=== PATIENT | female | born 1975 | race Caucasian/White ===

== ENCOUNTER 2016-12-13 21:54 | Emergency (ER) | payer BC, OTHER ==
[~2016-12-13] VITALS: Ht 170.2 cm; Wt 106.6 kg
[~2016-12-13 21:54] MED LIST: ALPR1T PO; Birth Control Pill; DESV50TA PO; GBPN100C PO; LAMO100T69 PO; METF-380 PO; OMEP20CA12 PO; PHEN37.555 PO; ZPR20C PO
[2016-12-13] MEDS ORDERED: KETOROLAC 30 MG/ML VIAL ONE (22:55)
[2016-12-13] MEDS ORDERED: ASPIRIN 81 MG CHEW (CHILDREN'S ASA) ONE (22:56)
[2016-12-13] MEDS ORDERED: NS IV 1000 ML 1,000 ML ONE (22:56)
[2016-12-13] MEDS ORDERED: NS IV 1000 ML 1,000 ML IV ONE (23:23)
[2016-12-13] MEDS ORDERED: KETOROLAC 30 MG/ML VIAL IVP ONE (23:30)
[2016-12-13] MEDS ORDERED: ASPIRIN 81 MG CHEW (CHILDREN'S ASA) PO ONE (23:30)
[2016-12-13] MEDS ORDERED: NS 100 ML (IVPB) BAG IV ONE (23:45)
[2016-12-13] MEDS ORDERED: IOHEXOL 350 MG/ML 150 ML (OMNIPAQUE 350) VIAL IV ONE (23:45)
[2016-12-13] MEDS ORDERED: NORG1TAB80 PO (23:55)
[2016-12-13] MEDS ORDERED: TRAM50TA2 PO (23:55)
--- NOTE | 2016-12-13 23:55 | ED Chest Pain ---
General Chief Complaint: Chest Wall/Rib Pain Stated Complaint: CP,SOA Nursing Triage Note: Pt c/o sternal chest pain radiating to L arm when moving or taking deep breath. Pt reports pain x2 days but worse today. Nursing Sepsis Screen: No Definite Risk Source: patient Exam Limitations: no limitations History of Present Illness Time seen by provider: 22:35 Initial Comments Here with report of chest pain and shortness of air and pain with deep breathing. She reports that this started with pain near her back left side near her shoulder blade. That seems to have decreased some but now has pain radiating around to the front of the chest and down the left arm. This is all been going on over the last 2 days. She did try ibuprofen for pain with the last dose early this morning. Denies nausea, vomiting or diarrhea. Timing/Duration: 2-3 days Severity/Quality: moderate, dull Location: central, back Radiation: arms (left-sided), shoulders Prior CP/Workup: stress test ASA po HORIZONTAL DRILL OPERATOR: No NTG SL HORIZONTAL DRILL OPERATOR: No Associated Symptoms: No abdominal pain, back painNo fever/chills, No nausea/ vomiting, No shortness of breath Allergies and Home Medications Allergies Coded Allergies: No Known Drug Allergies (Unverified , 08/07/12) Home Medications Alprazolam 1 Mg Tablet 1 MG PO TID PRN PRN ANXIETY (Reported) Gabapentin 100 Mg Cap 100 MG PO BID (Reported) Metformin Hcl 1,000 Mg Tablet 1 EACH PO BID WITH MEALS (Reported) Norgestimate-Ethinyl Estradiol 1 Each Tablet 1 EACH PO DAILY (Reported) Omeprazole 20 Mg Capsule. #30 1 CAP PO DAILY (Reported) Tramadol HCl 50 Mg Tablet 50 MG PO BID (Reported) Review of Systems Constitutional: see HPINo chills, No fever EENTM: No Symptoms Reported Respiratory: See HPI SOA With Exertion Cardiovascular: See HPI Chest Pain Gastrointestinal: No Symptoms Reported Genitourinary: No Symptoms Reported Musculoskeletal: see HPI back pain muscle pain Skin: no symptoms reported Psychiatric/Neurological: No Symptoms Reported All Other Systems Reviewed Negative Unless Noted: Yes Past Sfcpirr-Hfjrit-Wwdycv Hx Patient Social History Alcohol Use: Occasionally Uses Recreational Drug Use: No Smoking Status: Never a Smoker Recent Foreign Travel: No Contact w/Someone Who Travel: No Recent Infectious Disease Expo: No Recent Hopitalizations: No Physical Abuse Screen: No Sexual Abuse: No Immunizations Up To Date Date of Influenza Vaccine: Aug 19, 2011 Seasonal Allergies Seasonal Allergies: No Surgeries HX Surgeries: Yes Surgeries: Tonsillectomy Respiratory Hx Respiratory Disorders: No Cardiovascular Hx Cardiac Disorders: No Neurological Hx 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") Reproductive System Hx Reproductive Disorders: No Genitourinary Hx Genitourinary Disorders: No Gastrointestinal Hx Gastrointestinal Disorders: No Musculoskeletal Hx Musculoskeletal Disorders: Yes (spondolithiosis) Musculoskeletal Disorders: Chronic Back Pain Endocrine Hx Endocrine Disorders: No HEENT HX ENT Disorders: No Reviewed Nursing Assessment Reviewed/Agree w Nursing PMH: Yes Family Medical History Significant Family History: Heart Disease Physical Exam Vital Signs Vital Sign - Last 12Hours 12/13/16 21:58 Temp 97.6 Pulse 92 Resp 18 B/P 145/95 Pulse Ox 99 O2 Delivery Room Air Capillary Refill : Less Than 3 Seconds General Appearance: No Apparent Distress WD/WN HEENT: PERRL/EOMI Pharynx Normal Neck: Non Tender Supple Respiratory: Lungs Clear Normal Breath Sounds Cardiovascular: Regular Rate, Rhythm No Murmur Gastrointestinal: Non Tender Soft Extremity: Normal Inspection Normal Range of Motion Non Tender No Calf Tenderness Neurologic/Psychiatric: Alert Oriented x3 No Motor/Sensory Deficits Skin: Normal Color Warm/Dry Progress/Results/Core Measures Results/Orders Lab Results Laboratory Tests Test 12/13/16 22:20 Range/Units Alanine Aminotransferase (ALT/SGPT) 11 0-55 U/L Albumin 3.8 3.2-4.5 G/DL Alkaline Phosphatase 72 40-136 U/L Anion Gap 9 5-14 MMOL/L Aspartate Amino Transf (AST/SGOT) 12 5-34 U/L BUN/Creatinine Ratio 16 Basophils # (Auto) 0.0 0.0-0.1 10^3/uL Basophils (%) (Auto) 0 0-10 % Blood Urea Nitrogen 13 7-18 MG/DL Calcium Level 8.9 8.5-10.1 MG/DL Carbon Dioxide Level 22 21-32 MMOL/L Chloride Level 108 H 98-107 MMOL/L Creatinine 0.83 0.60-1.30 MG/DL D-Dimer 0.81 H 0.00-0.49 UG/ML Eosinophils # (Auto) 0.1 0.0-0.3 10^3/uL Eosinophils (%) (Auto) 1 0-10 % Estimat Glomerular Filtration Rate > 60 Glucose Level 102 70-105 MG/DL Hematocrit 39 35-52 % Hemoglobin 12.4 11.5-16.0 G/DL Lymphocytes # (Auto) 2.9 1.0-4.0 X 10^3 Lymphocytes (%) (Auto) 32 12-44 % Mean Corpuscular Hemoglobin 28 25-34 PG Mean Corpuscular Hemoglobin Concent 32 32-36 G/DL Mean Corpuscular Volume 87 80-99 FL Mean Platelet Volume 10.8 H 7.4-10.4 FL Monocytes # (Auto) 0.6 0.0-1.0 X 10^3 Monocytes (%) (Auto) 6 0-12 % Neutrophils # (Auto) 5.3 1.8-7.8 X 10^3 Neutrophils (%) (Auto) 60 42-75 % Platelet Count 322 130-400 10^3/uL Potassium Level 4.1 3.6-5.0 MMOL/L Red Blood Count 4.49 4.35-5.85 10^6/uL Red Cell Distribution Width 14.5 10.0-14.5 % Serum Test, Qualitative NEGATIVE NEGATIVE Sodium Level 139 135-145 MMOL/L Total Bilirubin 0.2 0.1-1.0 MG/DL Total Protein 6.8 6.4-8.2 G/DL Troponin I < 0.30 <0.30 NG/ML White Blood Count 8.8 4.3-11.0 10^3/uL My Orders Orders-JAI MAHONEY MD Ketorolac Injection (Toradol Injection) (12/13/16 23:30) Aspirin Chewable Tablet (Baby Aspirin Ch (12/13/16 23:30) Saline Lock/Iv-Start (12/13/16 23:23) Ns Iv 1000 Ml (Sodium Chloride 0.9%) (12/13/16 23:23) Monitor-Rhythm Ecg Trace Only (12/13/16 23:24) Ekg Tracing (12/13/16 23:24) Iohexol Injection (Omnipaque 350 Mg/Ml 1 (12/13/16 23:45) Ns (Ivpb) (Sodium Chloride 0.9% Ivpb Bag (12/13/16 23:45) Chest Pa/Lat (2 View) (12/13/16 ) Ct Angio Chest W (12/13/16 ) Cbc With Automated Diff (12/13/16 22:20) Comprehensive Metabolic Panel (12/13/16 22:20) Troponin I (12/13/16 22:20) Fibrin Degradation Products (12/13/16 22:20) Hcg,Qualitative Serum (12/13/16 22:20) Medications Given in ED Current Medications Medications Dose Ordered Sig/Belen Route Start Time Stop Time Status Last Admin Dose Admin Aspirin 324 mg 324 mg ONCE ONCE PO 12/13/16 23:30 12/13/16 23:31 DC 12/13/16 23:05 324 MG Iohexol 150 ml ONCE ONCE IV 12/13/16 23:45 12/13/16 23:46 DC 12/13/16 23:44 125 ML Ketorolac Tromethamine 30 mg ONCE ONCE IVP 12/13/16 23:30 12/13/16 23:31 DC 12/13/16 23:05 30 MG Sodium Chloride 100 ml ONCE ONCE IV 12/13/16 23:45 12/13/16 23:46 DC 12/13/16 23:44 80 ML Sodium Chloride 1,000 ml @ 0 mls/hr Q0M ONCE IV 12/13/16 23:23 12/13/16 23:25 DC 12/13/16 23:05 999 MLS/HR Vital Signs/I&O Vital Sign - Last 12Hours 12/13/16 21:58 Temp 97.6 Pulse 92 Resp 18 B/P 145/95 Pulse Ox 99 O2 Delivery Room Air Blood Pressure Mean: 112 Progress Note : Progress Note Seen and evaluated. IV, labs, chest x-ray and EKG ordered. D-dimer mildly positive. CT angiogram chest ordered. Toradol 30 mg IV, ASA 324 mg by mouth and normal saline 1 L bolus ordered. Monitor patient. 0019: CT angios negative for pulmonary embolism although limited study. She does have a question of small tissue densities in the bases bilateral with right greater than left. Follow-up for final report. Discharged home with return precautions. Patient verbalize understanding instructions and agreement with plan. I did discuss with the patient about the CT findings of questionable densities in the bases of the lungs with final report pending. She will follow- up with the clinic about this who can follow the recommendations of radiologist. She states she will call the clinic in the morning. ECG Initial ECG Impression Date: Dec 13, 2016 Initial ECG Impression Time: 22:06 Initial ECG Rate: 96 Initial ECG Rhythm: Normal Sinus Comment Sinus rhythm with normal axis. No evidence of ST elevation TN. Similar to previous of 08/23/11. Interpreted by me. Diagnostic Imaging Diagonstic Imaging: Xray Plain Films/CT/US/NM/MRI: chest Comments No acute findings Reviewed: Reviewed by Me Diagonstic Imaging: CT Plain Films/CT/US/NM/MRI: chest Comments Evaluation of the upper lobe pulmonary artery branches limited secondary to suboptimal contrast opacification. No evidence for pulmonary embolism. Incidental findings: The aorta past has normally. Mild atelectasis in the dependent aspect of the lungs. Small nonspecific soft tissue density nodules at the lung apices. The largest is on the right and measures 4 mm. Follow-up final report. Degenerative changes of the thoracic spine. Per statrad report Reviewed: Reviewed Night [facility] Study Departure Impression Impression: Primary Impression: Chest wall pain Disposition: 01 HOME, SELF-CARE Condition: Improved Departure-Patient Inst. Decision time for Depature: 00:35 Referrals: [facility] (PCP/Family) Primary Care Physician Patient Instructions: Chest Pain (DC) Add. Discharge Instructions: All discharge instructions reviewed with patient and/or family. Voiced understanding. You may take ibuprofen 800 mg every 8 hours as needed for pain. Continue other home medications as directed. Follow-up with your doctor for recheck and further evaluation including possible cardiac stress test as needed. Discussed with them about the CT scan results showing the densities in the lower lungs that will need follow-up per radiologist's recommendations. Return for worse pain, fever, vomiting, weakness, breathing problems or other concerns as needed. Work/School Note: Work Release Form Date Seen in the Emergency Department: Dec 13, 2016 Return to Work: Dec 14, 2016 Restrictions: No Restrictions JAI MAHONEY MD Dec 13, 2016 23:55
[2016-12-14 00:19] LABS: LYMPHOCYTES % (AUTO) 32 % (12-44); MEAN CORPUSCULAR HEMOGLOBIN 28 PG (25-34); MEAN CORPUSCULAR HGB CONC 32 G/DL (32-36); MEAN CORPUSCULAR VOLUME 87 FL (80-99); MEAN PLATELET VOLUME 10.8 FL (7.4-10.4); NEUTROPHILS % (AUTO) 60 % (42-75); PLATELET COUNT 322 10^3/uL (130-400); RED BLOOD COUNT 4.49 10^6/uL (4.35-5.85); RED CELL DISTRIBUTION WIDTH 14.5 % (10.0-14.5)
[2016-12-14 00:20] LABS: BASOPHILS % (AUTO) 0 % (0-10); EOSINOPHILS # (AUTO) 0.1 10^3/uL (0.0-0.3); EOSINOPHILS % (AUTO) 1 % (0-10); LYMPHOCYTES # (AUTO) 2.9 X 10^3 (1.0-4.0); MONOCYTES # (AUTO) 0.6 X 10^3 (0.0-1.0); MONOCYTES % (AUTO) 6 % (0-12); NEUTROPHILS # (AUTO) 5.3 X 10^3 (1.8-7.8); WHITE BLOOD COUNT 8.8 10^3/uL (4.3-11.0)
[2016-12-14 00:21] LABS: ALANINE AMINOTRANSFERASE 11 U/L (0-55); ANION GAP 9 MMOL/L (5-14); ASPARTATE AMINO TRANSFERASE 12 U/L (5-34); BILIRUBIN,TOTAL 0.2 MG/DL (0.1-1.0); BLOOD UREA NITROGEN 13 MG/DL (7-18); BUN/CREATININE RATIO 16; CALCIUM 8.9 MG/DL (8.5-10.1); CARBON DIOXIDE 22 MMOL/L (21-32); CHLORIDE 108 MMOL/L (98-107); CREATININE SERUM 0.83 MG/DL (0.60-1.30); GFR ESTIMATED > 60; GLUCOSE 102 MG/DL (70-105); POTASSIUM 4.1 MMOL/L (3.6-5.0); SODIUM 139 MMOL/L (135-145); TOTAL PROTEIN 6.8 G/DL (6.4-8.2); TROPONIN I < 0.30 NG/ML (<0.30)
[2016-12-14 00:22] LABS: ALBUMIN 3.8 G/DL (3.2-4.5)
[2016-12-14 00:41] VITALS: BP 134/81
--- NOTE | 2016-12-14 06:26 | Diagnostic Imaging Report ---
INDICATION: Chest pain and dyspnea PA and lateral views of the chest are obtained. COMPARISON: No previous study is available for comparison at this time. FINDINGS: Heart size and pulmonary vasculature are within normal limits, and the lungs are clear, bilaterally. IMPRESSION: Unremarkable chest. Dictated by: Dictated on workstation # [id number]
--- NOTE | 2016-12-14 07:23 | Diagnostic Imaging Report ---
PROCEDURE: CT angiography of the chest with contrast. TECHNIQUE: Multiple contiguous axial images were obtained through the chest after uneventful bolus administration of intravenous contrast. Reconstructed CTA MIP acquisitions were also performed. INDICATION: Chest pain and dyspnea There is no evidence of pulmonary arterial filling defect. Thoracic aorta is also unremarkable in appearance. There is slight dependent atelectasis in the lung bases. There is minimal subpleural nodularity noted in the apical aspect of the upper lobes. This is nonspecific and could be related to granulomatous exposure or fibrosis. There is mild endplate spurring throughout the thoracic spine. IMPRESSION: No CTA evidence of pulmonary embolism. Minimal nodularity in the upper lobe regions with no lesion measuring greater than 0.4 cm in size. Clinical correlation may be of use. Followup study could be performed in 6 months to document stability. Dictated by: Dictated on workstation # [id number]
== END 2016-12-14 00:41 | disposition home or self-care (01) ==
LOC: EDUNIT# 21:54 → ER 21:57
DX: R07.89 Other chest pain (principal); R06.02 Shortness of breath; E11.9 Type 2 diabetes mellitus without complications; Z79.84 Long term (current) use of oral hypoglycemic drugs; Z79.899 Other long term (current) drug therapy
CPT/HCPCS: 36415; 71020; 71275; 80053; 84484; 84703; 85025; 85379; 93005; 93041; 96361; 96374

== ENCOUNTER → 2019-07-03 | Outpatient (CLI) | payer SELFPAY ==
[~2019-07-03] MED LIST changes: +NORG1TAB3 PO; +TRAM50TA2 PO
--- NOTE | 2019-07-03 13:46 | Diagnostic Imaging Report ---
MRI RT LOWER EXT JOINT W/O TECHNIQUE: Multiplanar, multisequence MR imaging of the right knee was performed without contrast. COMPARISON: None available. INDICATION: Knee pain after injury. FINDINGS: MENISCI Medial meniscus: There is a small amount of free edge truncation of the posterior horn of the medial meniscus likely due to tearing. Lateral meniscus: Complex tear of the lateral meniscus includes a potential bucket-handle tear with the free edge flipped into the intercondylar notch. LIGAMENTS ACL: Intact. PCL: Intact. MCL: Intact. LCL: The lateral collateral ligamentous complex is intact. EXTENSOR MECHANISM The extensor mechanism is intact. CARTILAGE Medial compartment: Medial compartment articular cartilage is well preserved without focal high-grade chondromalacia. Lateral compartment: The lateral compartment articular cartilage is preserved without high-grade chondromalacia. Patellofemoral compartment: Low-grade partial-thickness chondromalacia in the medial and lateral patellar facets. Trochlear cartilage is preserved. BONE A small amount of bone marrow edema is present in the lateral femoral condyle and lateral tibial plateau which may represent bone contusion. No macroscopic fracture line. SOFT TISSUE Moderate-sized knee joint effusion. There is also a moderate-sized Porter's cyst which measures approximately 4 cm in craniocaudal dimension. IMPRESSION: 1. Complex tear of the lateral meniscus likely has a flipped bucket-handle fragment of the free edge. 2. Small regions of bone contusion in the lateral femoral condyle and opposing lateral tibial plateau. No macroscopic fracture line. 3. 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 Remainder of the articular cartilage is well preserved. 4. Moderate-sized knee joint effusion and moderate-sized Porter's cyst. Dictated by: Dictated on workstation # [id number]
== END ==
LOC: RAD 12:19
PROVIDERS: ATTEND Nurse Practitioner Community Health
DX: S83.281A Other tear of lateral meniscus, current injury, right knee, initial encounter (principal); S70.11XA Contusion of right thigh, initial encounter; S80.11XA Contusion of right lower leg, initial encounter; M22.41 Chondromalacia patellae, right knee; M25.461 Effusion, right knee; M71.21 Synovial cyst of popliteal space [Baker], right knee; X58.XXXA Exposure to other specified factors, initial encounter
CPT/HCPCS: 73721

== ENCOUNTER 2022-04-10 20:39 | Emergency (ER) | payer OTHER ==
[~2022-04-10] VITALS: Ht 170.1 cm; Wt 92.0 kg
[~2022-04-10 20:39] MED LIST changes: -TRAM50TA2 PO; +TRM50T PO
--- NOTE | 2022-04-10 20:52 | ED Neurological Problem ---
General Stated Complaint: NAUSEA/VOMITING/NUMBNESS ON ROGHT SIDE Source: patient Exam Limitations: no limitations History of Present Illness Date Seen by Provider: April 10, 2022 Time Seen by Provider: 20:43 Initial Comments 46-year-old female with no significant past medical history coming in with police as she is incarcerated due to an episode of nausea and nonbloody nonbilious vomiting. Afterward she felt some tingling on the left side of her face. This happened around 6 PM while she was showering. She said this was all started when she felt like something bit her behind her left ear. No numbness down her extremities or weakness. No vision changes or voice changes. Denies any headache at this time although she said she had some head fullness and felt slightly lightheaded when this was first occurring. Allergies and Home Medications Allergies Coded Allergies: No Known Drug Allergies (Unverified , 08/07/12) Patient Home Medication List Home Medication List Reviewed: Yes Alprazolam (Xanax) 1 Mg Tablet, 1 MG PO TID PRN for ANXIETY, (Reported) Entered as Reported by: HILDA TAVARES on 08/07/121499 Gabapentin (Neurontin) 100 Mg Cap, 100 MG PO BID, (Reported) Entered as Reported by: HILDA TAVARES on 08/07/121499 Metformin Hcl (Metformin 1000 Mg) 1,000 Mg Tablet, 1 EACH PO BID WITH MEALS, (Reported) Entered as Reported by: HILDA TAVARES on 08/07/12 1500 Norgestimate-Ethinyl Estradiol (Ortho Tri-Cyclen Lo Tablet) 1 Each Tablet, 1 EACH PO DAILY, (Reported) Entered as Reported by: KAREN PATEL on 12/13/162 Omeprazole (Omeprazole) 20 Mg Capsule.dr, 1 CAP PO DAILY, (Reported) Entered as Reported by: HILDA TAVARES on 08/07/12 1500 Tramadol HCl (Tramadol HCl) 50 Mg Tablet, 50 MG PO BID, (Reported) Entered as Reported by: KAREN PATEL on 12/13/16 0030 Review of Systems Review of Systems Constitutional: No chills, No fever Eyes: Denies Blurred Vision Ears, Nose, Mouth, Throat: no symptoms reported Respiratory: no symptoms reported Cardiovascular: no symptoms reported Gastrointestinal: no symptoms reported Genitourinary: no symptoms reported Musculoskeletal: no symptoms reported Skin: no symptoms reported Psychiatric/Neurological: Tingling, Other (Tingling) Endocrine: No Symptoms Reported Hematologic/Lymphatic: No Symptoms Reported All Other Systems Reviewed Negative Unless Noted: Yes Past Upeglak-Azuqzs-Khqtck Hx Patient Social History Tobacco Use?: No Substance use?: No Alcohol Use?: No Seasonal Allergies Seasonal Allergies: No Past Medical History Surgeries: No Tonsillectomy Reproductive Disorders: No Chronic Back Pain Family Medical History Heart Disease Physical Exam Vital Signs Vital Signs - First Documented 04/10/22 20:43 Temp 37.0 Pulse 114 Resp 16 Pulse Ox 99 O2 Delivery Room Air Capillary Refill : Height, Weight, BMI Height: 5'7.00" Weight: 235lbs. 0.0oz. 106.600474bf; 36.8 BMI Method:Stated General Appearance: WD/WN, no apparent distress HEENT: PERRL/EOMI, normal ENT inspection, TMs normal, pharynx normal Neck: non-tender, full range of motion, supple, normal inspection Respiratory: chest non-tender, lungs clear, normal breath sounds, no respiratory distress, no accessory muscle use Cardiovascular: regular rate, rhythm, no edema, no murmur Gastrointestinal: normal bowel sounds, non tender, soft; No distended, No guarding, No rebound Back: normal inspection, no CVA tenderness, no vertebral tenderness Extremities: normal range of motion, non-tender, normal inspection, no pedal edema, no calf tenderness, normal capillary refill Neurologic/Psychiatric: 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 as tested, no motor/sensory deficits, alert, normal mood/affect, oriented x 3, other (Normal gait, normal [id number]-eq-nvuh, normal fwvq-rh-zadi, normal visual burns, 20/20 vision in both eyes) Motor/Sensory: no motor deficit, no sensory deficit Skin: normal color, warm/dry Lymphatic: no adenopathy Stroke Onset of Symptoms Date of Onset of Symptoms: April 10, 2022 Time of Symptom Onset: 18:00 Onset of Symptoms: Yes NIH Stroke Scale Assessment Select: Initial Level of Consciousness: 0=Alert (0), Level of Consciousness- Questions: 0=Answers both month/age (0), LOC Commands: 0=Performs both tasks (0), Gaze: Normal (0), Visual Burns: 0=No visual loss (0), Facial Movement (Facial Paresis): 0=Normal symmetrical mnt (0), Motor Function-Arms Right: 0=No drift (0), Motor Function-Arms Left: 0=No drift (0), Motor Function-Legs Right: 0=No drift (0), Motor Function-Legs Left: 0=No drift (0), Limb Ataxia: 0=Absent (0), Sensory: 0=Normal:no loss (0), Best Language: 0=No aphasia (0), Dysarthria: 0=Normal (0), Extinction & Inattention: 0=No abnormality (0), Total: 0 Stroke Thrombolytic Exclusion Age 18 or Over: Yes Acute intenal hemorrhage: No History of CVA: No Uncontrolled Coagulation Defec: No Intracranial Hemorrhage: No Severe Hypertension: No GI or Bleed: No Subarachnoid Hemorrhage: No Intracranial Neoplasm/Aneurysm: No Oral Anticoagulants: No Surgery or Trauma: No Puncture of Non-Compressible V: No Recent CPR: No Organ Biopsy: No Recent Obstetric Delivery: No Significant Hepatic Dysfunctio: No NIH Stoke Scale >22: No Bacterial Endocarditis: No Pericarditis: No Improving Symptoms: Yes Platelets: No TPA Contraindication: Yes IV - TPa Received IV - TPa Procedure Performed?: No Progress/Results/Core Measures Results/Orders Lab Results Laboratory Tests Test 04/10/22 20:55 Range/Units Glucometer 105 70-110 MG/DL My Orders Orders - CABRERA CANTOR MD Ct Head Wo (04/10/22 20:47) Ekg Tracing (04/10/22 20:47) Accucheck Stat ONCE (04/10/22 20:52) Vital Signs/I&O 04/10/22 20:43 Temp 37.0 Pulse 114 Resp 16 B/P (MAP) Pulse Ox 99 O2 Delivery Room Air Progress Progress Note : Progress Note 46-year-old female with above history coming in due to left facial tingling after she felt like something bit her in the left ear. ABCs were intact and vitals were stable on presentation. Physical exam reassuring including an NIH scale of 0. She has no focal deficits on my exam. I do not see any bites or stings where she felt it. EKG with sinus rhythm and no ischemic changes. Glucose normal at 105. CT head without any acute abnormalities. She is at her baseline. The officer that is with her asked me if it is possible the patient could be exhibiting signs of meth use, because they are concerned some could have gotten into the pod and her senior living area. I think this is unlikely given the patient is very calm, has no vital sign changes, and overall does not show any other clinical signs of intoxication or drug use. I believe she is stable for discharge with outpatient follow-up. She was sent home with strict return pre cautions. Initial ECG Impression Date: April 10, 2022 Initial ECG Impression Time: 20:52 Initial ECG Rate: 93 Initial ECG Rhythm: Normal Sinus Comment Narrow QRS, normal axis, no significant ST changes or T wave abnormalities. Diagnostic Imaging Diagonstic Imaging: CT (head) Comments NAME: AJ OROPEZA [facility] REC#: [id number] PT STATUS: REG ER : 1975 PHYSICIAN: CABRERA CANTOR MD ADMIT DATE: 04/10/22/ER FS Draft Date of Exam:04/10/22 CT HEAD WO EXAMINATION: CT head without contrast. TECHNIQUE: Multiple contiguous axial images were obtained through the brain without the use of intravenous contrast. All CT scans use one or more of the following dose optimizing techniques: automated exposure control, MA and/or KvP adjustment based on patient size and exam type or iterative reconstruction. HISTORY: Left face numbness COMPARISON: None available. FINDINGS: The ventricles and sulci are normal. No abnormal attenuation of brain parenchyma is present. No acute intracranial hemorrhage or abnormal extra-axial fluid collections are present. No hyperdense vessel. The calvarium is intact. The mastoid air cells are clear. The visualized paranasal sinuses are clear. The orbits are normal. IMPRESSION: 1. No acute intracranial abnormality. Dictated on workstation # [id number] Dict: 04/10/222110 Trans: 04/10/222112 [facility] [id number] Interpreted by: ARCHIE KUHN DO Electronically signed by: Departure Impression Primary Impression: Numbness and tingling of left side of face Disposition: 01 HOME, SELF-CARE Condition: Stable Departure-Patient Inst. Decision time for Depature: 21:16 Referrals: [facility] (PCP/Family) Primary Care Physician Patient Instructions: Paresthesia (DC) Add. Discharge Instructions: Your work-up was reassuring. We did not see any obvious bite by your ear. If you have any weakness on one side of your body that you are unable to move, or you are unable to feel 1 side of your body at the same time, then I want you to be reevaluated. Follow-up with your regular doctor, if you do not have one, just call the [facility] in this paperwork. CABRERA CANTOR MD April 10, 2022 20:52
--- NOTE | 2022-04-10 21:13 | Diagnostic Imaging Report ---
EXAMINATION: CT head without contrast. TECHNIQUE: Multiple contiguous axial images were obtained through the brain without the use of intravenous contrast. All CT scans use one or more of the following dose optimizing techniques: automated exposure control, MA and/or KvP adjustment based on patient size and exam type or iterative reconstruction. HISTORY: Left face numbness COMPARISON: None available. FINDINGS: The ventricles and sulci are normal. No abnormal attenuation of brain parenchyma is present. No acute intracranial hemorrhage or abnormal extra-axial fluid collections are present. No hyperdense vessel. The calvarium is intact. The mastoid air cells are clear. The visualized paranasal sinuses are clear. The orbits are normal. IMPRESSION: 1. No acute intracranial abnormality. Dictated by: Dictated on workstation # [id number]
== END 2022-04-10 21:19 | disposition home or self-care (01) ==
LOC: EDUNIT# 20:39 → ER FS 20:42
DX: R20.0 Anesthesia of skin (principal); R20.2 Paresthesia of skin
CPT/HCPCS: 70450; 82947; 93005